=== PATIENT | male | born 1975 | race Caucasian/White ===

== ENCOUNTER 2017-06-04 17:58 | Emergency (ER) | payer OTHER ==
[~2017-06-04] VITALS: Ht 177.8 cm; Wt 103.0 kg
[2017-06-04] MEDS: MoRPHine SULFATE 4 MG/ML 1 ML CARP\\VIAL IV PRN ×2 (11:05→19:21)
[2017-06-04 18:06] VITALS: TEMP 37.3; Ht 177.8 cm; Wt 103.0 kg
[2017-06-04] MEDS ORDERED: SODIUM CHLORIDE 0.9% 1000ML 1,000 ML IV STA (18:45)
[2017-06-04] MEDS ORDERED: ONDANSETRON INJ 2 MG/ML 2 ML VIAL IV STA ×2 (18:45→20:22)
[2017-06-04] MEDS ORDERED: MIRT30TA3 PO (19:08)
[2017-06-04] MEDS ORDERED: SERT50TA PO (19:08)
--- NOTE | 2017-06-04 19:09 | EMERGENCY ROOM VISIT NOTE ---
History Report prepared by Fco: Renetta Ferrer Under the Supervision of: Dr. Porfirio Arboleda D.O. First contact with patient: 18:43 Chief Complaint: ABDOMINAL PAIN Stated Complaint: AB PAIN Nursing Triage Summary: RLQ pain since midnight. Nausea, constipation. History of Present Illness The patient is a 42 year old male who presents to the Emergency Room with complaints of persistent RLQ abdominal pain starting around 18 hours ago. He describes the pain as cramping. He has never had this before. He has back pain on the right side also. He reports nausea. He vomited a clear liquid. He feels bloated. He has had cold sweats. He feels feverish, but has no fever. He feels SOB with the pain. He denies any chest pain. He has a history of degenerative disc disease, anxiety, and depression, but denies any other medical problems. He denies any previous surgeries. He still has his gallbladder and appendix. He admits to tobacco use. He denies any alcohol use. Source of History: patient Onset: 18 hours ago Position: abdomen (RLQ) Quality: cramping Timing: other (persistent) Associated Symptoms: + diaphoresis, + SOB, + nausea, + vomiting, + back pain , No fevers, No chest pain Review of Systems See HPI for pertinent positives & negatives. A total of 10 systems reviewed and were otherwise negative. Past Medical & Surgical Medical Problems: (1) Degenerative disc disease Family History No pertinent family history stated. Social History Smoking Status: Current Every Day Smoker Housing Status: other (correction) Current/Historical Medications Scheduled Mirtazapine (Remeron), 30 MG PO HS Sertraline (Zoloft), 150 MG PO HS Allergies Coded Allergies: Penicillins (Verified Allergy, Unknown, "FATHER SEVERE REACTION", 06/04/17 ) Physical Exam Vital Signs Date Time Temp Pulse Resp B/P (MAP) Pulse Ox O2 Delivery O2 Flow Rate FiO2 06/05/17 00:24 76 18 118/68 94 Room Air 06/04/17 21:17 79 18 124/75 96 Room Air 06/04/17 19:29 83 18 132/82 93 Room Air 06/04/17 18:06 37.3 120 20 109/79 94 Room Air Physical Exam GENERAL: Patient is awake, alert, and in no acute distress. Patient is resting comfortably and showing no signs of anxiety EYES: The conjunctivae are clear. The pupils are round and reactive. EARS, NOSE, MOUTH AND THROAT: The nose is without any evidence of any deformity. Mucous membranes are moist tongue is midline NECK: The neck is nontender and supple. RESPIRATORY: Normal respiratory effort is noted there is no evidence of wheezing rhonchi or rales CARDIOVASCULAR: Regular rate and rhythm noted there no murmurs rubs or gallops normal S1 normal S2 GASTROINTESTINAL: The abdomen is mildly distended with right upper and right lower quadrant tenderness to palpation. BACK: Right CVA tenderness to percussion. No midline tenderness noted. ROM appears intact. MUSCULOSKELETAL/EXTREMITIES: There is no evidence of gross deformity full range of motion is noted in the hips and shoulders SKIN: There is no obvious evidence of any rash. There are no petechiae, pallor or cyanosis noted. NEUROLOGIC: Patient is awake alert and oriented x3 Medical Decision & Procedures ER Provider Diagnostic Interpretation: Radiology results as stated below per my review and radiologist interpretation: ABDOMEN AND PELVIS CT WITHOUT CONTRAST CT DOSE: 920.83 mGy.cm HISTORY: Acute right lower quadrant abdominal pain right flank pain TECHNIQUE: Multiaxial CT images of the abdomen and pelvis were performed without contrast. A dose lowering technique was utilized adhering to the principles of ALARA. COMPARISON STUDY: None. FINDINGS: Minimal dependent bibasilar atelectasis. No pneumoperitoneum or pneumatosis. The imaged inferior cardiac chambers demonstrate mild coronary arterial disease. Evaluation of the solid abdominal organs is limited without the use of IV contrast. The liver, spleen, pancreas and left adrenal gland are unremarkable. The right adrenal gland is now well-seen secondary to hemorrhagic material as below. Cholelithiasis without CT evidence of acute cholecystitis. There is minimal nonspecific left-sided perinephric stranding. There is a large subcapsular hematoma of the right kidney measuring approximately 12 x 8.5 x 10.3 cm causing mass effect and medial displacement of the right kidney. Hemorrhage extends into the perirenal space and tracks inferiorly within the retroperitoneum adjacent to the ascending colon into the right pelvis. Evaluation of the renal parenchyma is limited without the use of IV contrast. Additionally, there is a possible laceration of the superior pole right kidney, 2.0 x 1.1 cm containing hemorrhagic material, as seen on image 177 series 3. Urinary bladder is unremarkable. Calcifications of the prostate are noted. Abdominal aorta is normal in course and caliber and demonstrates mild atherosclerotic plaquing. No bulky adenopathy. There is no bowel obstruction. Stranding surrounds the duodenum, likely reactive from the hematoma. Mild colonic diverticulosis without diverticulitis. The appendix appears normal. Soft tissues are unremarkable. The bones appear intact. IMPRESSION: 1. Large subcapsular hematoma of the right kidney measures up to 12 x 8.5 x 10.3 cm and causes moderate mass effect and medial displacement of the right kidney. Correlate with blood pressure readings to exclude page kidney. Additionally, there is a linear area of increased attenuation of the superior pole right kidney measuring up to 2.0 cm which may reflect renal laceration. Evaluation is limited without the use of IV contrast. 2. No acute fracture or additional posttraumatic findings within the abdomen or pelvis. 3. Cholelithiasis without CT evidence of acute cholecystitis. 4. Mild colonic diverticulosis. 5. Normal appendix. Electronically signed by: Camilo Costa M.D. 06/04/2017 7:57 PM Dictated Date/Time: 06/04/2017 7:47 PM Laboratory Results 06/04/17 19:10 Red Blood Count 4.46, Mean Corpuscular Volume 89.0, Mean Corpuscular Hemoglobin 30.5, Mean Corpuscular Hemoglobin Concent 34.3, Mean Platelet Volume 10.5, Neutrophils (%) (Auto) 79.3, Lymphocytes (%) (Auto) 8.0, Monocytes (%) (Auto) 11.9, Eosinophils (%) (Auto) 0.1, Basophils (%) (Auto) 0.1, Neutrophils # (Auto ) 14.60, Lymphocytes # (Auto) 1.47, Monocytes # (Auto) 2.19, Eosinophils # (Auto ) 0.01, Basophils # (Auto) 0.01 06/04/17 19:10 Test 06/04/17 19:10 White Blood Count 18.39 K/uL (4.8-10.8) Red Blood Count 4.46 M/uL (4.7-6.1) Hemoglobin 13.6 g/dL (14.0-18.0) Hematocrit 39.7 % (42-52) Mean Corpuscular Volume 89.0 fL (80-100) Mean Corpuscular Hemoglobin 30.5 pg (25-34) Mean Corpuscular Hemoglobin Concent 34.3 g/dl (32-36) Platelet Count 246 K/uL (130-400) Mean Platelet Volume 10.5 fL (7.4-10.4) Neutrophils (%) (Auto) 79.3 % Lymphocytes (%) (Auto) 8.0 % Monocytes (%) (Auto) 11.9 % Eosinophils (%) (Auto) 0.1 % Basophils (%) (Auto) 0.1 % Neutrophils # (Auto) 14.60 K/uL (1.4-6.5) Lymphocytes # (Auto) 1.47 K/uL (1.2-3.4) Monocytes # (Auto) 2.19 K/uL (0.11-0.59) Eosinophils # (Auto) 0.01 K/uL (0-0.5) Basophils # (Auto) 0.01 K/uL (0-0.2) RDW Standard Deviation 46.2 fL (36.4-46.3) RDW Coefficient of Variation 14.2 % (11.5-14.5) Immature Granulocyte % (Auto) 0.6 % Immature Granulocyte # (Auto) 0.11 K/uL (0.00-0.02) Prothrombin Time 11.5 SECONDS (9.0-12.0) Prothromb Time International Ratio 1.1 (0.9-1.1) Activated Partial Thromboplast Time 29.4 SECONDS (21.0-31.0) Partial Thromboplastin Ratio 1.1 Urine Color DK YELLOW Urine Appearance CLOUDY (CLEAR) Urine pH 5.0 (4.5-7.5) Urine Specific [place]ock 1.030 (1.000-1.030) Urine Protein 1+ (NEG) Urine Glucose (UA) NEG (NEG) Urine Ketones NEG (NEG) Urine Occult Blood NEG (NEG) Urine Nitrite NEG (NEG) Urine Bilirubin NEG (NEG) Urine Urobilinogen NEG (NEG) Urine Leukocyte Esterase TRACE (NEG) Urine WBC (Auto) 10-30 /hpf (0-5) Urine RBC (Auto) 0-4 /hpf (0-4) Urine Hyaline Casts (Auto) 10-30 /lpf (0-5) Urine Epithelial Cells (Auto) 20-30 /lpf (0-5) Urine Bacteria (Auto) NEG (NEG) Urine Pathogenic Casts 1-5 GRANULAR CASTS /lpf (0) Anion Gap 11.0 mmol/L (3-11) Est Creatinine Clear Calc Drug Dose 66.7 ml/min Estimated GFR () 55.6 Estimated GFR (Non- 48.0 BUN/Creatinine Ratio 16.5 (10-20) Calcium Level 9.2 mg/dl (8.5-10.1) Total Bilirubin 0.9 mg/dl (0.2-1) Direct Bilirubin 0.2 mg/dl (0-0.2) Aspartate Amino Transf (AST/SGOT) 14 U/L (15-37) Alanine Aminotransferase (ALT/SGPT) 27 U/L (12-78) Alkaline Phosphatase 66 U/L (45-117) Total Protein 8.2 gm/dl (6.4-8.2) Albumin 3.8 gm/dl (3.4-5.0) Lipase 132 U/L (73-393) Laboratory results per my review. Medications Administered Medications (Trade) Dose Ordered Sig/Darek Route Start Time Stop Time Status Last Admin Dose Admin Sodium Chloride 1,000 ml @ 999 mls/hr Q1H1M STAT IV 06/04/17 18:45 06/04/17 19:45 DC 06/04/17 19:22 999 MLS/HR Ondansetron HCl (Zofran Inj) 4 mg NOW STAT IV 06/04/17 18:45 06/04/17 18:46 DC 06/04/17 19:21 4 MG Morphine Sulfate (MoRPHine SULFATE INJ) 4 mg Q15M PRN IV 06/04/17 19:00 06/05/17 01:08 DC 06/04/17 11:05 4 MG Ondansetron HCl (Zofran Inj) 4 mg NOW STAT IV 06/04/17 20:22 06/04/17 20:23 DC 06/04/17 20:22 4 MG ED Course 1844: The patient was evaluated in room B2. A complete history and physical examination were performed. 1845: Zofran Inj 4 mg IV, NSS 1000 ml @ 999 mls/hr IV. 0: Morphine Sulfate 4 mg IV. 1945: I reevaluated the patient. I discussed the results and treatment plan with him. He will be transferred to [facility] for further management. 2008: I discussed the patient's case with Dr. Herrera [facility] ER. He has accepted the patient for transfer. 2021: Zofran Inj 4 mg IV. 2145: EMS will not be available to transfer the patient until 2299. 2149: I discussed the patient's case with Dr. Herrera again. He is OK with the patient leaving our facility around 2299. Medical Decision Prior records/ancillary studies reviewed. Triage Nursing notes reviewed. The patient's history was concerning for abdominal pain. Differential diagnosis: Etiologies such as appendicitis, diverticulitis, PUD, biliary pathology, UTI, pancreatitis, obstruction, mesenteric ischemia, aortic pathology, infections, inflammatory bowel disease, renal colic, as well as others were entertained. The patient is a 42-year-old male who presented to the emergency department from the correction for an evaluation of right flank pain and right upper quadrant pain. The patient was sent to the emergency department for the possibility of hernia because of a mass in the right upper quadrant. The patient was found have a subcapsular hematoma on his right kidney by CAT scan. The CAT scan was obtained without contrast because I thought he had a kidney stone. I discussed the patient's laboratory radiographic studies with him. He was treated with IV fluids IV pain medicine and IV antiemetics. The patient denied that this was from a trauma. I discussed his case with the on-call general surgeon at [facility]. They've agreed to accept the patient in transfer for further evaluation. The patient did not have any signs of bruising on the abdomen or flank. He denies any falls. The patient was agreeable to transfer. Medication Reconcilliation Current Medication List: was personally reviewed by me Blood Pressure Screening Patient's blood pressure: Normal blood pressure Blood pressure disposition: Did not require urgent referral Consults Time Called: 2004 Consulting Physician: Dr. Herrera [facility] ER Returned Call: 2008 I discussed the patient's case with him. He has accepted the patient for transfer. Additional Consults: Time Called: 2146 Consulted Physician: Dr. Herrera Returned Call: 2149 Additional Comments: I discussed the patient's case with him again. He is OK with the patient leaving our facility around 2299. Impression Primary Impression: Hematoma of right kidney Additional Impression: Right sided abdominal pain Scribe Attestation The scribe's documentation has been prepared under my direction and personally reviewed by me in its entirety. I confirm that the note above accurately reflects all work, treatment, procedures, and medical decision making performed by me. Departure Information Dispostion Transfer Acute Care Facility Patient Instructions My [facility] Problem Qualifiers Primary Impression: Hematoma of right kidney Encounter type: initial encounter Qualified Codes: S37.011A - Minor contusion of right kidney, initial encounter
[2017-06-04 19:42] LABS: BASO % 0.1 %; BASO ABS # 0.01 K/uL (0-0.2); COMPLETE YES; EOS % 0.1 %; HEMATOCRIT 39.7 % (42-52); IG% 0.6 %; LYMPH ABS # 1.47 K/uL (1.2-3.4); MEAN CORPUSCULAR HEMOGLOBIN 30.5 pg (25-34); MEAN CORPUSCULAR HGB CONC 34.3 g/dl (32-36); MEAN PLATELET VOLUME 10.5 fL (7.4-10.4); MONO % 11.9 %; NEUT % 79.3 %; PLATELET COUNT 246 K/uL (130-400); RED BLOOD COUNT 4.46 M/uL (4.7-6.1); WHITE BLOOD COUNT 18.39 K/uL (4.8-10.8)
[2017-06-04 19:45] LABS: URINE APPEARANCE CLOUDY (CLEAR); URINE COLOR DK YELLOW; URINE EPITHELIAL CELL AUTO 20-30 /lpf (0-5); URINE NITRITE NEG (NEG); UROBILINOGEN NEG (NEG)
[2017-06-04 19:47] LABS: MANUAL MICROSCOPIC REQUIRED? NO; REVIEW REQ? YES
[2017-06-04 19:49] LABS: URINE BILIRUBIN NEG (NEG)
[2017-06-04 19:52] LABS: BUN/CREATININE RATIO 16.5 (10-20); CALCIUM 9.2 mg/dl (8.5-10.1); CREATININE 1.7 mg/dl (0.60-1.40); INR 1.1 (0.9-1.1); PARTIAL THROMBOPLASTIN RATIO 1.1; POTASSIUM 4.6 mmol/L (3.5-5.1); PROTHROMBIN TIME (PATIENT) 11.5 SECONDS (9.0-12.0)
[2017-06-04 19:56] LABS: URINE PATH CASTS 1-5 GRANULAR CASTS /lpf (0)
--- NOTE | 2017-06-04 19:58 | DIAGNOSTIC IMAGING REPORT ---
ABDOMEN AND PELVIS CT WITHOUT CONTRAST CT DOSE: 920.83 mGy.cm HISTORY: Acute right lower quadrant abdominal pain right flank pain TECHNIQUE: Multiaxial CT images of the abdomen and pelvis were performed without contrast. A dose lowering technique was utilized adhering to the principles of ALARA. COMPARISON STUDY: None. FINDINGS: Minimal dependent bibasilar atelectasis. No pneumoperitoneum or pneumatosis. The imaged inferior cardiac chambers demonstrate mild coronary arterial disease. Evaluation of the solid abdominal organs is limited without the use of IV contrast. The liver, spleen, pancreas and left adrenal gland are unremarkable. The right adrenal gland is now well-seen secondary to hemorrhagic material as below. Cholelithiasis without CT evidence of acute cholecystitis. There is minimal nonspecific left-sided perinephric stranding. There is a large subcapsular hematoma of the right kidney measuring approximately 12 x 8.5 x 10.3 cm causing mass effect and medial displacement of the right kidney. Hemorrhage extends into the perirenal space and tracks inferiorly within the retroperitoneum adjacent to the ascending colon into the right pelvis. Evaluation of the renal parenchyma is limited without the use of IV contrast. Additionally, there is a possible laceration of the superior pole right kidney, 2.0 x 1.1 cm containing hemorrhagic material, as seen on image 177 series 3. Urinary bladder is unremarkable. Calcifications of the prostate are noted. Abdominal aorta is normal in course and caliber and demonstrates mild atherosclerotic plaquing. No bulky adenopathy. There is no bowel obstruction. Stranding surrounds the duodenum, likely reactive from the hematoma. Mild colonic diverticulosis without diverticulitis. The appendix appears normal. Soft tissues are unremarkable. The bones appear intact. IMPRESSION: 1. Large subcapsular hematoma of the right kidney measures up to 12 x 8.5 x 10.3 cm and causes moderate mass effect and medial displacement of the right kidney. Correlate with blood pressure readings to exclude page kidney. Additionally, there is a linear area of increased attenuation of the superior pole right kidney measuring up to 2.0 cm which may reflect renal laceration. Evaluation is limited without the use of IV contrast. 2. No acute fracture or additional posttraumatic findings within the abdomen or pelvis. 3. Cholelithiasis without CT evidence of acute cholecystitis. 4. Mild colonic diverticulosis. 5. Normal appendix. Electronically signed by: Camilo Costa M.D. 06/04/2017 7:57 PM Dictated Date/Time: 06/04/2017 7:47 PM
[2017-06-05 00:24] VITALS: BP 118/68; PULSE 76; O2SAT 94
== END 2017-06-05 00:52 | disposition short-term general hospital (02) ==
LOC: C.EDB 18:02
DX: S37.011A Minor contusion of right kidney, initial encounter (principal); R10.31 Right lower quadrant pain; X58.XXXA Exposure to other specified factors, initial encounter; F17.200 Nicotine dependence, unspecified, uncomplicated

== ENCOUNTER 2017-06-09 19:20 | Emergency (ER) | payer OTHER ==
[~2017-06-09] VITALS: Ht 177.8 cm; Wt 102.0 kg
[~2017-06-09 19:20] MED LIST: MIRT30TA3 PO; SERT50TA PO
[2017-06-09 19:50] VITALS: Ht 177.8 cm; Wt 102.0 kg
[2017-06-09] MEDS ORDERED: MoRPHine SULFATE 2 MG/ML CARP IV STA (21:27)
[2017-06-09] MEDS ORDERED: ONDANSETRON INJ 2 MG/ML 2 ML VIAL IV STA ×2 (21:27→22:32)
[2017-06-09 21:39] LABS: BASO % 0.2 %; BASO ABS # 0.03 K/uL (0-0.2); COMPLETE YES; EOS % 0.8 %; HEMATOCRIT 29.8 % (42-52); IG% 0.3 %; LYMPH % 13.4 %; LYMPH ABS # 1.92 K/uL (1.2-3.4); MEAN CELL VOLUME 88.7 fL (80-100); MEAN CORPUSCULAR HEMOGLOBIN 29.8 pg (25-34); MEAN CORPUSCULAR HGB CONC 33.6 g/dl (32-36); MEAN PLATELET VOLUME 9.2 fL (7.4-10.4); MONO % 13.7 %; NEUT % 71.6 %; PLATELET COUNT 412 K/uL (130-400); RED BLOOD COUNT 3.36 M/uL (4.7-6.1)
[2017-06-09] MEDS ORDERED: OPTIRAY 320 IV PRN (21:45)
[2017-06-09 21:46] LABS: PARTIAL THROMBOPLASTIN RATIO 1.2; PROTHROMBIN TIME (PATIENT) 10.6 SECONDS (9.0-12.0)
[2017-06-09 21:49] LABS: ISTAT CREATININE 0.8 mg/dl (0.6-1.3); ISTAT HEMOGLOBIN 12.2 g/dl (14.0-18.0); ISTAT IONIZED CALCIUM 1.19 mmol/l (1.12-1.32)
[2017-06-09 21:55] LABS: BUN/CREATININE RATIO 18.9 (10-20); CALCIUM 9.2 mg/dl (8.5-10.1); CREATININE 0.92 mg/dl (0.60-1.40); POTASSIUM 3.9 mmol/L (3.5-5.1)
--- NOTE | 2017-06-09 22:11 | DIAGNOSTIC IMAGING REPORT ---
CT ABD/PELVIS IV CONTRAST ONLY CLINICAL HISTORY: Right flank pain. Right renal cell capsular hematoma. COMPARISON STUDY: 06/04/2017 TECHNIQUE: Following the IV administration of 90 mL of Optiray-320, CT scan of the abdomen and pelvis was performed from the lung bases to the proximal femurs. Images are reviewed in the axial, sagittal, and coronal planes. IV contrast was administered without complication. A dose lowering technique was utilized adhering to the principles of ALARA. CT DOSE: 1134.30 mGy.cm FINDINGS: Lower chest: There are bibasal atelectatic changes. There is mild elevation right hemidiaphragm. Liver: The contrast-enhanced liver is normal in size, contour, and attenuation. There is no intrahepatic biliary ductal dilatation. The hepatic veins and portal veins are patent. Gallbladder: Cholelithiasis Spleen: Normal in size and attenuation. Pancreas: Unremarkable. Adrenal glands: Unremarkable. Kidneys: There is a large right-sided subcapsular hematoma measuring 48 mm in thickness. There is a cleft within the upper posterior renal cortex suspicious for a parenchymal laceration. There are nonspecific lower pole subcentimeter hypodensities likely representing cysts. There is no hydronephrosis. Hemorrhage extends into the perirenal space. There is mild infiltration of the right retroperitoneum between the colon and psoas muscle. Bowel: There are no transition zones indicate bowel obstruction. There is no acute diverticulitis. There is colonic diverticulosis. The appendix appears normal. Peritoneum: There is no free fluid. There is no free intraperitoneal air. Vasculature: The abdominal aorta is normal in course and caliber. Adenopathy: None. Pelvic viscera: There is thickening of the presacral space. This is a new finding and likely relates to the patient's right renal hemorrhage. Skeletal structures: No destructive osseous lesions are seen. IMPRESSION: 1. Upper pole right renal laceration with persistent associated large subcapsular hematoma. There is also extension into the perirenal space. Hemorrhage remain similar in size to the preceding examination 2. Cholelithiasis 3. No evidence of bowel obstruction. No evidence of free air 4. Normal appendix. Diverticulosis. No evidence of acute diverticulitis. Electronically signed by: Jmaie Rosa M.D. 06/09/2017 10:09 PM Dictated Date/Time: 06/09/2017 9:58 PM
[2017-06-09] MEDS ORDERED: ZNTT/150 PO (22:20)
[2017-06-09] MEDS ORDERED: ACET-1311 PO (22:28)
[2017-06-09 23:47] VITALS: BP 125/77; PULSE 83; TEMP 37.1; O2SAT 95
--- NOTE | 2017-06-10 01:38 | EMERGENCY ROOM VISIT NOTE ---
History Report prepared by Fco: Ynes Silva Under the Supervision of: Dr. Thanh Pierce M.D. First contact with patient: 21:17 Chief Complaint: FLANK PAIN Stated Complaint: FEVER History of Present Illness The patient is a 42 year old male who presents to the Emergency Room with complaints of worsening right flank pain beginning [employer]. The patient was seen in the ED on 06/04 for right flank pain. He was found to have a hematoma on his right kidney at that time and he was transferred to [facility]. He states that they found a mass on his kidney that was causing bleeding. He was in the hospital for 3 days and then discharged to the infirmary at the care home. The patient states that today he is having more pain and it has been worsening throughout the day. He describes his pain as sharp and rates it as a 10/10 in severity. This is the same pain he has been experiencing. He states that now his pain is radiating into his groin and it feels like it is squeezing his testicles. The patient also reports a fever with a temperature of 102 today. He notes nausea and lightheadedness. The patient denies vomiting, dysuria, hematuria, testicular swelling, penile discharge, and any recent trauma or injury. Source of History: patient Onset: [employer] Position: other (right flank) Symptom Intensity: 10/10 Quality: sharp Timing: worsening Associated Symptoms: + fevers, + nausea, No vomiting, No urinary symptoms Note: Pt reports groin pain and lightheadedness. Pt denies testicular swelling, penile discharge, recent trauma or injury. Review of Systems See HPI for pertinent positives & negatives. A total of 10 systems reviewed and were otherwise negative. Past Medical & Surgical Medical Problems: (1) Degenerative disc disease Family History No pertinent history stated. Social History Smoking Status: Current Every Day Smoker Housing Status: other (incarcerated) Occupation Status: other (incarcerated) Current/Historical Medications Scheduled Mirtazapine (Remeron), 30 MG PO HS Ranitidine (Zantac), 150 MG PO BID Sertraline (Zoloft), 150 MG PO HS Scheduled PRN Acetaminophen (Tylenol), 650 MG PO QID PRN for Pain Allergies Coded Allergies: Penicillins (Verified Allergy, Unknown, "FATHER SEVERE REACTION", 06/09/17) Physical Exam Vital Signs Date Time Temp Pulse Resp B/P (MAP) Pulse Ox O2 Delivery O2 Flow Rate FiO2 06/09/17 23:47 37.1 83 18 125/77 95 06/09/17 23:36 83 18 125/77 95 Room Air 06/09/17 22:37 82 18 120/70 95 Room Air 06/09/17 21:14 37.1 87 27 116/79 95 Room Air 06/09/17 19:50 37.6 104 20 126/76 94 Room Air Physical Exam Constitutional: Vital signs reviewed. Eyes: Pupils are equal round reactive to light. Conjunctiva are noninjected. ENT: Pharynx is clear without erythema or exudate. Mucous membranes are moist. Neck supple without meningeal signs. Respiratory: Clear to auscultation bilaterally. Breath sounds are equal bilaterally. Cardiovascular: Regular rate and rhythm. No rubs or gallops. GI: Soft, RLQ tenderness, no guarding, nondistended. Bowel sounds are present. : No testicular swelling, erythema, or significant tenderness. No urethral discharge. Musculoskeletal: No peripheral edema. No lower extremity tenderness. Integumentary: No cyanosis. Neurological: The patient is awake and alert. No focal deficits. Psychiatric: Normal affect. Medical Decision & Procedures ER Provider Diagnostic Interpretation: Radiology results as stated below per my review and the radiologist's interpretation: CT ABD/PELVIS IV CONTRAST ONLY CLINICAL HISTORY: Right flank pain. Right renal cell capsular hematoma. COMPARISON STUDY: 06/04/2017 TECHNIQUE: Following the IV administration of 90 mL of Optiray-320, CT scan of the abdomen and pelvis was performed from the lung bases to the proximal femurs. Images are reviewed in the axial, sagittal, and coronal planes. IV contrast was administered without complication. A dose lowering technique was utilized adhering to the principles of ALARA. CT DOSE: 1134.30 mGy.cm FINDINGS: Lower chest: There are bibasal atelectatic changes. There is mild elevation right hemidiaphragm. Liver: The contrast-enhanced liver is normal in size, contour, and attenuation. There is no intrahepatic biliary ductal dilatation. The hepatic veins and portal veins are patent. Gallbladder: Cholelithiasis Spleen: Normal in size and attenuation. Pancreas: Unremarkable. Adrenal glands: Unremarkable. Kidneys: There is a large right-sided subcapsular hematoma measuring 48 mm in thickness. There is a cleft within the upper posterior renal cortex suspicious for a parenchymal laceration. There are nonspecific lower pole subcentimeter hypodensities likely representing cysts. There is no hydronephrosis. Hemorrhage extends into the perirenal space. There is mild infiltration of the right retroperitoneum between the colon and psoas muscle. Bowel: There are no transition zones indicate bowel obstruction. There is no acute diverticulitis. There is colonic diverticulosis. The appendix appears normal. Peritoneum: There is no free fluid. There is no free intraperitoneal air. Vasculature: The abdominal aorta is normal in course and caliber. Adenopathy: None. Pelvic viscera: There is thickening of the presacral space. This is a new finding and likely relates to the patient's right renal hemorrhage. Skeletal structures: No destructive osseous lesions are seen. IMPRESSION: 1. Upper pole right renal laceration with persistent associated large subcapsular hematoma. There is also extension into the perirenal space. Hemorrhage remain similar in size to the preceding examination 2. Cholelithiasis 3. No evidence of bowel obstruction. No evidence of free air 4. Normal appendix. Diverticulosis. No evidence of acute diverticulitis. Electronically signed by: Jamie Rosa M.D. 06/09/2017 10:09 PM Dictated Date/Time: 06/09/2017 9:58 PM Laboratory Results 06/09/17 21:14 Red Blood Count 3.36, Mean Corpuscular Volume 88.7, Mean Corpuscular Hemoglobin 29.8, Mean Corpuscular Hemoglobin Concent 33.6, Mean Platelet Volume 9.2, Neutrophils (%) (Auto) 71.6, Lymphocytes (%) (Auto) 13.4, Monocytes (%) (Auto) 13.7, Eosinophils (%) (Auto) 0.8, Basophils (%) (Auto) 0.2, Neutrophils # (Auto ) 10.23, Lymphocytes # (Auto) 1.92, Monocytes # (Auto) 1.96, Eosinophils # (Auto ) 0.11, Basophils # (Auto) 0.03 06/09/17 21:14 Test 06/09/17 21:14 06/09/17 21:35 White Blood Count 14.30 K/uL (4.8-10.8) Red Blood Count 3.36 M/uL (4.7-6.1) Hemoglobin 10.0 g/dL (14.0-18.0) Hematocrit 29.8 % (42-52) Mean Corpuscular Volume 88.7 fL (80-100) Mean Corpuscular Hemoglobin 29.8 pg (25-34) Mean Corpuscular Hemoglobin Concent 33.6 g/dl (32-36) Platelet Count 412 K/uL (130-400) Mean Platelet Volume 9.2 fL (7.4-10.4) Neutrophils (%) (Auto) 71.6 % Lymphocytes (%) (Auto) 13.4 % Monocytes (%) (Auto) 13.7 % Eosinophils (%) (Auto) 0.8 % Basophils (%) (Auto) 0.2 % Neutrophils # (Auto) 10.23 K/uL (1.4-6.5) Lymphocytes # (Auto) 1.92 K/uL (1.2-3.4) Monocytes # (Auto) 1.96 K/uL (0.11-0.59) Eosinophils # (Auto) 0.11 K/uL (0-0.5) Basophils # (Auto) 0.03 K/uL (0-0.2) RDW Standard Deviation 47.5 fL (36.4-46.3) RDW Coefficient of Variation 14.5 % (11.5-14.5) Immature Granulocyte % (Auto) 0.3 % Immature Granulocyte # (Auto) 0.05 K/uL (0.00-0.02) Prothrombin Time 10.6 SECONDS (9.0-12.0) Prothromb Time International Ratio 1.0 (0.9-1.1) Activated Partial Thromboplast Time 30.1 SECONDS (21.0-31.0) Partial Thromboplastin Ratio 1.2 Est Creatinine Clear Calc Drug Dose 122.6 ml/min Estimated GFR () 116.8 Estimated GFR (Non- 100.8 BUN/Creatinine Ratio 18.9 (10-20) Calcium Level 9.2 mg/dl (8.5-10.1) Total Bilirubin 0.9 mg/dl (0.2-1) Direct Bilirubin 0.3 mg/dl (0-0.2) Aspartate Amino Transf (AST/SGOT) 64 U/L (15-37) Alanine Aminotransferase (ALT/SGPT) 75 U/L (12-78) Alkaline Phosphatase 131 U/L (45-117) Total Protein 8.0 gm/dl (6.4-8.2) Albumin 2.9 gm/dl (3.4-5.0) Lipase 146 U/L (73-393) Bedside Hemoglobin 12.2 g/dl (14.0-18.0) Bedside Hematocrit 36 % (42-52) Bedside Sodium 140 mEq/L (135-144) Bedside Potassium 4.0 mEq/L (3.3-5.0) Bedside Chloride 104 mEq/L (101-112) Bedside Total CO2 25 mEq/l (24-31) Anion Gap 16.0 mmol/L (16-25) Bedside Blood Urea Nitrogen 17 mg/dl (7-18) Bedside Creatinine 0.8 mg/dl (0.6-1.3) Bedside Glucose (other) 111 mg/dl (70-99) Bedside Ionized Calcium (Bhanu) 1.19 mmol/l (1.12-1.32) Laboratory results as reviewed by me. Medications Administered Medications (Trade) Dose Ordered Sig/Darek Route Start Time Stop Time Status Last Admin Dose Admin Morphine Sulfate (MoRPHine SULFATE INJ) 2 mg NOW STAT IV 06/09/17 21:27 06/09/17 21:30 DC 06/09/17 21:40 2 MG Ondansetron HCl (Zofran Inj) 4 mg NOW STAT IV 06/09/17 21:27 06/09/17 21:30 DC 06/09/17 21:39 4 MG Ondansetron HCl (Zofran Inj) 4 mg NOW STAT IV 06/09/17 22:32 06/09/17 22:33 DC 06/09/17 22:39 4 MG ED Course 2116: The patient was evaluated in room C12B. A complete history and physical exam was performed. 2126: Zofran 4 mg IV, Morphine sulfate 2 mg IV 2213: I reassessed the patient at this time. I discussed the results and treatment plan with the patient. I answered all pertaining questions that he had. He expressed understanding and verbalized agreement. 2221: I spoke with Dr. Rasheed trauma surgery and [facility] Ann Marie. We discussed the patient's case. She accepted the patient for transfer to the ED. 2228: I updated the patient. He verbalized agreement. He is requesting more nausea medication. 2231: Zofran 4 mg IV Medical Decision This is a 42-year-old male who presents with right-sided abdominal pain, fever and lightheadedness. Differential diagnosis includes hemoperitoneum, hematoma, anemia, abscess, bacteremia. I did perform a limited focused review of portions of the patient's old chart on the electronic medical record. The patient was seen here on 06/04/2017 for right sided abdominal pain. On CT scan he had a renal hematoma on the right side and he was transferred to [facility]. I did evaluate the patient as noted above. IV access was established. I did treat the patient with IV morphine and Zofran. I did order and personally review the patient's 12-lead EKG and chest x-ray as described above. I did order and review the patient's blood work as noted in the electronic medical record. His white blood cell count is elevated but decreased since his last visit. His hemoglobin has dropped to 10. I did order a CT of the abdomen and pelvis. I did review the images myself as well as the radiology report as described above. He does have persistent right perirenal hematoma and laceration. I did discuss the test results with the patient. I did recommend transfer to trauma surgery at [facility]. I did discuss the case with the trauma surgeon who accepted patient for transfer. He was transferred via ALS ambulance. He remained hemodynamically stable. Medication Reconcilliation Current Medication List: was personally reviewed by me Blood Pressure Screening Patient's blood pressure: Elevated blood pressure Blood pressure disposition: Elevated BP felt to be situational Consults Time Called: 2218 Consulting Physician: Dr. Rasheed Returned Call: [address] Rasheed trauma surgery and [facility]. We discussed the patient's case. She accepted the patient for transfer to the ED. Impression Primary Impression: Renal hematoma, right Additional Impressions: Symptomatic anemia Fever Scribe Attestation The scribe's documentation has been prepared under my direct and personally reviewed by me in its entirety. I confirm that the note above accurately reflects all work, treatment, procedures, and medical decision making performed by me. Departure Information Dispostion Transfer Acute Care Facility Referrals Bandar PFEIFFER (PCP) Patient Instructions My [facility] [address] Problem Qualifiers Primary Impression: Renal hematoma, right Encounter type: subsequent encounter Qualified Codes: S37.011D - Minor contusion of right kidney, subsequent encounter Additional Impressions: Fever Fever type: unspecified Qualified Codes: R50.9 - Fever, unspecified
== END 2017-06-09 23:48 | disposition short-term general hospital (02) ==
LOC: C.EDB 19:21 → C.EDC 23:48
DX: S37.011A Minor contusion of right kidney, initial encounter (principal); X58.XXXA Exposure to other specified factors, initial encounter; D64.9 Anemia, unspecified; R50.9 Fever, unspecified; F17.200 Nicotine dependence, unspecified, uncomplicated; Z79.899 Other long term (current) drug therapy; Z80.0 Family history of malignant neoplasm of digestive organs